=== PATIENT | male | born 1970 | race African-American/Black ===

== ENCOUNTER 2018-07-14 17:19 | Emergency (ER) | payer OTHER ==
[~2018-07-14] VITALS: Ht 177.8 cm; Wt 97.8 kg
[2018-07-14] MEDS ORDERED: ALTEPLASE 100 MG IV ONE (17:28)
--- NOTE | 2018-07-14 17:33 | RAD ---
CT scan of the head without contrast 07/14/2018 Clinical History: Right-sided facial droop since 4:30 PM. Technique: Unenhanced, contiguous, 5 mm axial sections were obtained through the head. One or more of the following individualized dose reduction techniques were utilized for this study: 1. Automated exposure control. 2. Adjustment of the mA and/or kV according to patient size. 3. Use of iterative reconstruction technique. Findings: The ventricles and sulci are within normal limits in size and configuration. No focal area of abnormal attenuation is seen involving the brain parenchyma. No extra-axial fluid collection is seen.No skull fracture is seen. Impression: Negative study. This result was called to Dr. Abel in the emergency department at 1727 hours. Electronically signed by: Mack Beach MD (07/14/2018 5:30 PM) [facility]
--- NOTE | 2018-07-14 17:35 | EKG ---
[address] [address] Test Date: 2018-07-14 Test Time: 17:33:07 Pat Name: ZAHRAA LOUISE Department: Room: Gender: M [employer]: : 1970 Requested By: LELAND ZARATE Order Number: [id number] Reading MD: José Manuel [place] Measurements Intervals [place] Rate: 91 P: 67 AK: 114 QRS: -87 QRSD: 160 T: 53 QT: 376 QTc: 464 Interpretive Statements SINUS RHYTHM ABNORMAL LEFT AXIS DEVIATION ABERRANTLY CONDUCTED BEATS QRS(T) CONTOUR ABNORMALITY CONSISTENT WITH INFERIOR INFARCT PROBABLY OLD ABNORMAL ECG RI6.01 No previous ECG available for comparison Electronically Signed On 08-04-2018 12:32:41 CDT by José Manuel [place]
[2018-07-14 17:43] LABS: BASO # 0.1 x10^3/uL (0.0-0.2); BASO % 1 % (0-3); EOS % 0 % (0-3); HEMATOCRIT 47.1 % (39.0-53.0); HEMOGLOBIN 15.9 g/dL (13.0-17.5); LYMPH # 2.5 x10^3/uL (1.0-4.8); LYMPH % 43 % (24-48); MEAN CORPUSCULAR HEMOGLOBIN 28 pg (25-35); MEAN CORPUSCULAR HGB CONC 34 g/dL (31-37); MEAN CORPUSCULAR VOLUME 83 fL (79-100); MONO # 0.5 x10^3/uL (0.0-1.1); MONO % 9 % (0-9); NEUT # 2.7 x10^3uL (1.8-7.7); NEUT % 47 % (31-73); PLATELET COUNT 360 x10^3/uL (140-400); RED BLOOD COUNT 5.64 x10^6/uL (4.30-5.70); RED CELL DISTRIBUTION WIDTH 13.5 % (11.5-14.5); WHITE BLOOD COUNT 5.7 x10^3/uL (4.0-11.0)
[2018-07-14] MEDS ORDERED: ALTEPLASE IV ONE ×2 (17:45→18:30)
[2018-07-14] MEDS ORDERED: LABETALOL 20 MG/4 ML DISP.SYRIN. IV PRN (17:45)
[2018-07-14] MEDS ORDERED: ALTEPLASE IV SCH (17:45)
[2018-07-14] MEDS ORDERED: IV NORMAL SALINE 50ML 50 ML IV ONE (17:45)
--- NOTE | 2018-07-14 17:54 | PHYS DOC ---
Adult General Chief Complaint Chief Complaint: NEURO SYMPTOMS/DEFICITS HPI HPI Patient is a 48-year-old male who is presenting with stroke witnessed 4:30 PM slurred speech and left-sided weakness no prior history of same does have a history of high cholesterol history is limited by the acuity condition however I did talk to Dr. Pinto at the [facility] who confirm the above information blood pressure was in the 130s over there (LELAND ZARATE MD) Review of Systems Review of Systems Limited by acuity no chest pain (LELAND ZARATE MD) Current Medications Current Medications Current Medications Medications (Trade) Dose Ordered Sig/Obdulia Start Time Stop Time Status Last Admin Dose Admin Alteplase, Recombinant 0 ml @ 0 mls/hr Q1H 07/14/18 17:45 07/14/18 17:46 UNV Iohexol (Omnipaque 350 Mg/ml) 100 ml 1X ONCE 07/14/18 17:45 07/14/18 17:46 UNV Labetalol HCl (Normodyne) 10 mg PRN Q10MIN PRN 07/14/18 17:45 UNV Nicardipine HCl 50 mg/Sodium Chloride 250 ml @ 25 mls/hr CONT PRN PRN 07/14/18 17:45 UNV Sodium Chloride 50 ml @ 0 mls/hr 1X ONCE 07/14/18 17:45 07/14/18 17:46 UNV (LELAND ZARATE MD) Physical Exam Physical Exam Constitutional: Well developed mild distress HENT: Normocephalic, atraumatic, bilateral external ears normal, oropharynx moist, no oral exudates, nose normal. [] Eyes: PERRLA, EOMI, conjunctiva normal, no discharge. [] Neck: Normal range of motion, no tenderness, supple, no stridor. [] Cardiovascular:Heart rate regular rhythm, no murmur [] Lungs & Thorax: Bilateral breath sounds clear to auscultation [] Abdomen: Bowel sounds normal, soft, no tenderness, no masses, no pulsatile masses. [] Skin: Warm, dry, no erythema, no rash. [] Back: No tenderness, no CVA tenderness. [] Extremities: No tenderness, no cyanosis, no clubbing, ROM intact, no edema. [] Neurologic: See stroke scale[] Psychologic: Tearful (LELAND ZARATE MD) Current Patient Data Lab Results Laboratory Tests Test 07/14/18 17:25 White Blood Count 5.7 x10^3/uL (4.0-11.0) Red Blood Count 5.64 x10^6/uL (4.30-5.70) Hemoglobin 15.9 g/dL (13.0-17.5) Hematocrit 47.1 % (39.0-53.0) Mean Corpuscular Volume 83 fL (79-100) Mean Corpuscular Hemoglobin 28 pg (25-35) Mean Corpuscular Hemoglobin Concent 34 g/dL (31-37) Red Cell Distribution Width 13.5 % (11.5-14.5) Platelet Count 360 x10^3/uL (140-400) Neutrophils (%) (Auto) 47 % (31-73) Lymphocytes (%) (Auto) 43 % (24-48) Monocytes (%) (Auto) 9 % (0-9) Eosinophils (%) (Auto) 0 % (0-3) Basophils (%) (Auto) 1 % (0-3) Neutrophils # (Auto) 2.7 x10^3uL (1.8-7.7) Lymphocytes # (Auto) 2.5 x10^3/uL (1.0-4.8) Monocytes # (Auto) 0.5 x10^3/uL (0.0-1.1) Eosinophils # (Auto) 0.0 x10^3/uL (0.0-0.7) Basophils # (Auto) 0.1 x10^3/uL (0.0-0.2) (LELAND ZARATE MD) EKG EKG []Sinus rhythm rate 91 no acute ischemic changes noted there is a right bundle branch block pattern no ST elevation was noted. (LELAND ZARATE MD) Radiology/Procedures Radiology/Procedures [] (LELAND ZARATE MD) Course & Med Decision Making Course & Med Decision Making Pertinent Labs and Imaging studies reviewed. (See chart for details) []Head CT read came in approximately 10 minutes after the patient arrived it was negative I spoke to the radiologist. I spoke to Dr. Bolanos at when the patient was here for 21 minutes we talked briefly he confirmed given the case agrees with the TPA will get a CT angiogram and call him back with results. tpa was given on an urgent basis I talked to the patient who is in agreement with the plan. Critical care time was 45 minutes exclusive of procedures. Signout a Lashanda pending CTA results and final disposition either [place] or (LELAND ZARATE MD) Course & Med Decision Making CTA returned unremarkable. A repeat NIH stroke scale was completed and at a 7 as of 1850. Given the normal CTA, plan will be to transfer to [facility]. Dr. Bolanos at was notified of the normal results. Patient's case was discussed with Dr. Munoz at [place], on-call for neurology, and she will consult on the patient. She is requesting patient be transferred and admitted to ICU. I further discussed case with Dr. Henry who will accept patient in transfer. (RHONDA YI Jr., DO) Dragon Disclaimer Dragon Disclaimer This electronic medical record was generated, in whole or in part, using a voice recognition dictation system. (LELAND ZARATE MD) Departure Departure: Impression: Primary Impression: CVA (cerebral vascular accident) Disposition: XFER [facility] Admitting Physician: Michaela Henry (RHONDA YI Jr., DO) Condition: IMPROVED NIHSS - ED NIH Stroke Scale: NIH Stroke Scale Response (Comments) Value Level of Consciousness: 0 Alert/Responsive 0 LOC Questions: 0 Answers both correctly 0 LOC Commands: 0 Performs both tasks 0 Best Gaze: 0 Normal 0 Visual: 0 No visual loss 0 Facial Palsy: 2 Partial paralysis 2 Motor - Left Arm 1 Drifts, but can hold 1 Motor - Right Arm 0 No drift 0 Motor - Left Leg 2 Some effort 2 Motor: Right Leg 0 No drift 0 Limb Ataxia: 0 Absent 0 Sensory: 1 Mid to moderate loss 1 Best Language: 1 Mild to mod aphasia 1 Dysathria: 1 Mild to moderate 1 Total 8 Problem Qualifiers Primary Impression: CVA (cerebral vascular accident) CVA mechanism: unspecified Qualified Codes: I63.9 - Cerebral infarction, unspecified LELAND ZARATE MD July 14, 2018 17:54 RHONDA YI Jr., DO July 14, 2018 19:16
[2018-07-14 18:00] LABS: CALCIUM 9.7 mg/dL (8.5-10.1); CREATININE 1.3 mg/dL (0.7-1.3); GFR 71.6; POTASSIUM 3.8 mmol/L (3.5-5.1)
[2018-07-14] MEDS ORDERED: IOHEXOL 350 MG/ML 100 ML VIAL. IV ONE (18:00)
--- NOTE | 2018-07-14 18:56 | RAD ---
CTA of the head and neck with contrast 07/14/2018 Clinical history: Right-sided facial droop. Technique: After the intravenous administration of 100 cc of Omnipaque 350, contiguous, 0.625 mm axial sections were obtained through the upper chest, neck and head. Multiplanar 3-D MIP and volume rendered 3-D reconstructed images were obtained. One or more of the following individualized dose reduction techniques were utilized for this study: 1. Automated exposure control. 2. Adjustment of the mA and/or kV according to patient size. 3. Use of iterative reconstruction technique. Findings: Comparison is made to patient's CT scan of the head performed earlier today. There is a common origin of the right and left common carotid arteries from the thoracic aortic arch. The right subclavian artery originates as the last branch of the thoracic aortic arch and extends posterior to the esophagus. These are normal variations. These ateries are patent. The origin of the left subclavian artery from the thoracic aortic arch is patent. The origins of the right common carotid artery and both vertebral arteries are patent. The common carotid arteries, carotid bifurcations and internal carotid arteries are within normal limits. No area of stenosis or occlusion is seen. The left vertebral artery is dominant. Both vertebral arteries demonstrate normal antegrade flow. No area stenosis or occlusion is seen. Intracranially the petrous, cavernous and supraclinoid portions of the internal carotid arteries are within normal limits. The distal vertebral arteries and basilar artery are within normal limits. The anterior, middle and posterior cerebral arteries and their branches are within normal limits. No areas stenosis or occlusion is seen. No intracranial aneurysm is noted. The major dural venous sinuses are patent. No area of abnormal contrast enhancement is seen. No acute soft tissue abnormality is seen involving the neck. Moderate bullous emphysematous changes are seen involving the right lung apex. Mild degenerative changes are seen involving the cervical spine. Impression: Negative study. Stenosis calculation for CTA are based on measurement of the distal internal carotid artery diameter in accordance with the NASCET methodology. Electronically signed by: Mack Beach MD (07/14/2018 6:53 PM) [facility]
[2018-07-14 20:10] VITALS: BP 143/89
== END 2018-07-14 20:23 | disposition short-term general hospital (02) ==
LOC: EEVIPCON 17:19 → ER 17:19
DX: I63.9 Cerebral infarction, unspecified (principal); R47.81 Slurred speech; R53.1 Weakness; E78.00 Pure hypercholesterolemia, unspecified
CPT/HCPCS: 36415; 37195; 70450; 70496; 70498; 80048; 82947; 84484; 85025; 85610; 86850; 86900; 86901; 93005; 99285; J2997; Q9967